=== PATIENT | male | born 1985 | race Caucasian/White ===

== ENCOUNTER 2016-08-07 04:09 | Emergency (ER) ==
[2016-08-07 04:20] VITALS: BP 120/79; TEMP 98.2; BMI 25.0
[2016-08-07] MEDS ORDERED: KLONOPIN PO STA (05:08)
[2016-08-07 05:14] LABS: BILIRUBIN,URINE 1+ (NEGATIVE); KETONES,URINE Trace (NEGATIVE); LEUKOCYTE ESTERASE ,URINE Negative (NEGATIVE); NITRITE,URINE Negative (NEGATIVE); PH,URINE 7.5 (5-9); PROTEIN,URINE Negative (NEGATIVE); URINE, BLOOD Negative (NEGATIVE)
[2016-08-07 05:19] LABS: ADD URINE MICROSCOPIC YES
--- NOTE | 2016-08-07 05:21 | CT ---
EXAM: CT brain without contrast HISTORY: Memory loss TECHNIQUE: CT of the brain without intravenous contrast FINDINGS: There is no acute hemorrhage midline shift or mass effect. No hydrocephalus or abnormal extra-axial fluid collection. No significant parenchymal attenuation abnormality. The bony cranium appears normal. The visualized paranasal sinuses are clear. Soft tissues without significant abnorm ality. IMPRESSION: 1. CT of the brain within normal limits.
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
--- NOTE | 2016-08-07 05:24 | CT ---
Exam: CT of the chest without contrast History: Cough and chest pain Technique: [address] of the chest without intravascular contrast FINDINGS: The lung windows show no pulmonary parenchymal abnormalities. The heart, great vessels a nd pericardium appear normal by noncontrast CT. No abnormalities of the chest wall soft tissues or bony thorax. No abnormalities of the upper abdomen. Impression: 1. No abnormalities of the chest.
[2016-08-07 05:26] LABS: COCAIN SCREEN,URINE NEGATIVE (NEGATIVE)
[2016-08-07 05:26] LABS: BASOPHILS # (AUTO) 0.1 K/uL (0-0.2); BASOPHILS % (AUTO) 0.9 % (0.0-3.0); EOSINOPHILS # (AUTO) 0.1 K/ul (0.0-0.7); EOSINOPHILS % (AUTO) 2.1 % (0.0-7.0); HEMATOCRIT 37.5 % (42.0-52.0); HEMOGLOBIN 13.6 g/dl (14.0-18.0); IMMATURE GRANULOCYTE % (AUTO) 0.2 % (0.0-5.0); LYMPHOCYTES # (AUTO) 2.4 K/uL (0.60-3.4); LYMPHOCYTES % (AUTO) 37.1 (10.0-50.0); MEAN CORPUSCULAR HEMOGLOBIN 31.6 pg (27.0-31.0); MEAN CORPUSCULAR HGB CONC 36.3 (31.8-35.4); MONOCYTES # (AUTO) 0.5 K/uL (0.4-2.0); MONOCYTES % (AUTO) 7.4 (0-10); NEUTROPHILS # (AUTO) 3.3 K/ul (2.0-6.9); NEUTROPHILS % (AUTO) 52.3; PLATELET COUNT 299 10^3/uL (140-440); RED BLOOD COUNT 4.31 10^6/ul (4.70-6.10); WHITE BLOOD COUNT 6.33 K/ul (4.2-10.2)
--- NOTE | 2016-08-07 05:30 | CT ---
Exam: CT of the abdomen and pelvis without contrast History: Abdominal pain Technique: [address] of the abdomen and pelvis without intravascular contrast FINDINGS: The lung bases are clear. No significant liver abnormality. The adrenals, pancreas and sp lars are unremarkable. The stomach and hiatus are unremarkable.The gallbladder appears normal. Kidne ys and proximal collecting system are unremarkable. Prior cholecystectomy. Bowel loops demonstrate n ormal caliber. No inflamatory change seen in the mesentery or retroperitoneum. Evidence of prior lali endectomy. Vascular structures appear normal. Pelvic genitourinary structures appear normal. Pelvic bowel loops are unremarkable. No inflammatory change in the pelvic fat. No acute abnormality of the abdominal or pelvic skeleton. Impression: 1. No inflammatory process, bowel or urinary obstruction is seen. No acute findings of the abdomen or pelvis.
[2016-08-07 05:51] LABS: ALBUMIN/GLOBULIN RATIO 1.6; ANION GAP 10.2; BILIRUBIN,TOTAL 0.87 mg/dL (0.00-1.20); BUN/CREATININE RATIO 11.49; CREATININE 0.87 mg/dL (0.60-1.10); POTASSIUM 3.2 mmol/L (3.5-5.1); TOTAL PROTEIN 6.5 g/dL (6.4-8.2); TROPONIN I 0.011 ng/ml (0.0000-0.4000)
[2016-08-07] MEDS ORDERED: K-DUR PO STA (05:53)
== END 2016-08-07 06:30 | disposition home or self-care (01) ==
LOC: ED 04:09
DX: F20.0 Paranoid schizophrenia (principal); R07.9 Chest pain, unspecified; R10.9 Unspecified abdominal pain; R41.3 Other amnesia; R42 Dizziness and giddiness; R51 Headache
CPT/HCPCS: 36415; 80053; 80306; 81001; 82150; 82550; 83690; 84484; 85025; 93005; 93010; 99283

== ENCOUNTER 2016-09-17 12:25 | Outpatient (CLI) | END 2016-09-17 12:26 | disposition home or self-care (01) | LOC: AMBL 12:25 | PROVIDERS: ATTEND Emergency Medicine | DX: M79.604 Pain in right leg (principal); M79.89 Other specified soft tissue disorders ==

== ENCOUNTER 2016-10-23 06:43 | Emergency (ER) ==
[2016-10-23 06:47] VITALS: BP 132/80; TEMP 98.5; BMI 20.9
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
[2016-10-23] MEDS ORDERED: TORADOL IVP STA (07:03)
[2016-10-23] MEDS ORDERED: ZOFRAN 4 MG/2 ML IVP STA (07:03)
[2016-10-23 07:27] LABS: BASOPHILS # (AUTO) 0.1 K/uL (0-0.2); BASOPHILS % (AUTO) 0.9 % (0.0-3.0); EOSINOPHILS # (AUTO) 0.1 K/ul (0.0-0.7); EOSINOPHILS % (AUTO) 1.9 % (0.0-7.0); HEMATOCRIT 38.3 % (42.0-52.0); HEMOGLOBIN 13.5 g/dl (14.0-18.0); IMMATURE GRANULOCYTE % (AUTO) 0.1 % (0.0-5.0); LYMPHOCYTES # (AUTO) 2.2 K/uL (0.60-3.4); LYMPHOCYTES % (AUTO) 31.6 (10.0-50.0); MEAN CORPUSCULAR HEMOGLOBIN 31.3 pg (27.0-31.0); MEAN CORPUSCULAR HGB CONC 35.2 (31.8-35.4); MEAN CORPUSCULAR VOLUME 88.9 fl (80.0-94.0); MONOCYTES # (AUTO) 0.5 K/uL (0.4-2.0); MONOCYTES % (AUTO) 6.9 (0-10); NEUTROPHILS % (AUTO) 58.6; PLATELET COUNT 301 10^3/uL (140-440); RED BLOOD COUNT 4.31 10^6/ul (4.70-6.10); WHITE BLOOD COUNT 6.83 K/ul (4.2-10.2)
[2016-10-23 07:35] LABS: H. PYLORI ANTIBODY NEGATIVE (NEGATIVE)
[2016-10-23 07:36] LABS: H.PYLORI INTERNAL QC INTERNAL QC VALID
[2016-10-23 07:43] LABS: ALBUMIN/GLOBULIN RATIO 1.38; ANION GAP 13.1; BILIRUBIN,TOTAL 0.56 mg/dL (0.00-1.20); BUN/CREATININE RATIO 20.22; CALCIUM 9.2 mg/dL (8.2-10.2); CREATININE 0.89 mg/dL (0.60-1.10); POTASSIUM 4.1 mmol/L (3.5-5.1); TOTAL PROTEIN 6.9 g/dL (6.4-8.2)
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
--- NOTE | 2016-10-23 07:58 | CT ---
EXAM: CT of the abdomen pelvis without contrast History: Abdominal pain. Comparison: CT abdomen pelvis 08/07/2016 Technique: Multiplanar CT images through the abdomen pelvis were obtained without the administratio n of IV contrast Findings: Lung bases are clear. No acute osseous abnormalities. No renal stones and no hydronephrosis. Appendix is not seen. No secondary signs of appendicitis. No peripancreatic inflammation. Gallbladder is contracted. No focal liver lesions. No focal splen ic lesions. Adrenal glands are unremarkable. No bowel obstruction. No free air. Postsurgical rashel nges seen in the right lower quadrant. No bladder wall thickening. Prostate is not enlarged. Mode rate colonic stool. No ascites. Impression: No acute intra-abdominal or pelvic process. Moderate colonic stool.
[2016-10-23 08:17] LABS: BILIRUBIN,URINE Negative (NEGATIVE); KETONES,URINE Negative (NEGATIVE); LEUKOCYTE ESTERASE ,URINE Negative (NEGATIVE); NITRITE,URINE Negative (NEGATIVE); PROTEIN,URINE Negative (NEGATIVE); URINE, BLOOD Trace-intact (NEGATIVE)
[2016-10-23 08:18] LABS: ADD URINE MICROSCOPIC YES
== END 2016-10-23 09:45 | disposition home or self-care (01) ==
LOC: ED 06:43
DX: K59.00 Constipation, unspecified (principal)
CPT/HCPCS: 36415; 80053; 80307; 81001; 82150; 83690; 84145; 85025; 86677; 96374; 96375; 99283